=== PATIENT | male | born 1985 | race Caucasian/White ===

== ENCOUNTER 2017-02-25 19:02 | Emergency (ER) | payer OTHER ==
--- NOTE | ~2017-02-25 | CR72 ---
[facility] A Service of [facility] & [facility] RADIOLOGY TEXT RESULTS PATIENT: ANIKET TROTTER LOCATION: [facility] : 89 UNIT #: [id number] AGE: [address]: Larisa Garcia MD SEX: M ORDER DR: [id number] [facility] [address] [place], [place] [address] [id number] MR#: [id number] Acc #: [id number] NAME: ANIKET TROTTER : 1985 SEX: M STUDY DATE/TIME: 02/25/2017 22:02 UNIT: [facility] ROOM: STUDY DESCRIPTION: CR Chest Single View Portable Attending Physician: Larisa Garcia M.D. Ordering Physician: Larisa Garcia M.D. Primary Care Physician: No Primary Care Physician MEDICAL IMAGING REPORT This report is preliminary unless electronic signature is present EXAM Portable chest 02/25/2017 HISTORY Chest pain and shortness of breath for 2 days chest congestion. FINDINGS A single AP portable view of the chest shows both lungs to be clear. The heart is normal in size. The mediastinal contour is normal. No significant bone abnormalities are seen. IMPRESSION Normal portable chest. Dictated by... Mauri Mensah M.D. THIS IS AN ELECTRONICALLY VERIFIED REPORT Mauri Mensah M.D. at 02/28/2017 8:27 AM CHYNA/stephanie TD: 02/26/2017 02:27 JOB #: [id number] MEDICAL IMAGING REPORT Page 1 of 1 COPY
--- NOTE | ~2017-02-25 | EKG ---
PATIENT: ANIKET TROTTER UNIT #: [id number] Ventricular Rate: 130 BPM Atrial Rate: 130 BPM P-R Interval: 142 ms QRS Duration: 98 ms Q-T Interval: 304 ms QTC Calculation(Bezet): 447 ms P Paradise: 56 degrees Calculated R Paradise: -57 degrees Calculated T Paradise: 69 degrees Diagnosis Line: Sinus tachycardia Diagnosis Line: Possible Left atrial enlargement Diagnosis Line: Pulmonary disease pattern Diagnosis Line: Incomplete right bundle branch block Diagnosis Line: Left anterior fascicular block Diagnosis Line: Left ventricular hypertrophy Diagnosis Line: Nonspecific ST abnormality Diagnosis Line: Abnormal ECG Diagnosis Line: When compared with ECG of 16-JUL-2015 19:49, Diagnosis Line: No significant change was found Diagnosis Line: Confirmed by HENRI PINEDA MD ([id number]) on Diagnosis Line: 02/27/2017 10:43:52 AM INTERPRETING MD: KATHY
[~2017-02-25 19:02] MED LIST: AMOXICILLIN500 M1 PO; BACTRIM DS TABL1 TA1 PO; BENZONATATE PO; ELIMITE60 GM TOP; FLEXERIL10 M1 PO; MEDROL DOSEPAK4 MG DOB; NAPROXEN PO; NO MEDICATIONS; TESSALON200 MG PO; VIBRAMYCIN100 M1 PO; VOLTAREN75 MG PO
[2017-02-25 22:51] LABS: BASOPHIL% 0.2 % (0-2.5); HEMATOCRIT 47.9 % (38.0-50.0); LYMPHOCYTE# 0.5 X10e3 (1.0-3.5); LYMPHOCYTE% 2.8 % (17.0-45.0); MEAN CORPUSCULAR HEMOGLOBIN 30.4 PG (28-34); MEAN CORPUSCULAR HGB CONC 33.4 g/dL (30-36); MEAN PLATELET VOLUME 7.7 FL (6.5-11.5); MONOCYTE# 0.7 X10e3 (0-1.0); MONOCYTE% 3.9 % (3.0-12.0); NEUTROPHIL# 17.8 X10e3 (1.5-7.1); NEUTROPHIL% 93.1 % (40-75); PLATELET COUNT 197 X10e3 (140-420); RED BLOOD COUNT 5.27 X10e (3.90-5.60); WHITE BLOOD COUNT 19.1 X10e3 (4.0-10.5)
[2017-02-25 22:52] LABS: DIFF IND YES
[2017-02-25 23:00] LABS: INR 1.1; PARTIAL THROMBOPLASTIN TIME 28.5 SECONDS (23.5-31.3); PROTHROMBIN TIME (PATIENT) 11.4 SECONDS (10.0-11.7)
[2017-02-25 23:09] LABS: ALBUMIN SERUM 4.6 g/dL (3.5-5.0); BILIRUBIN, DIRECT 0.2 mg/dL (0.0-0.2); BILIRUBIN,INDIRECT 1.9 mg/dL (0.0-0.9); BILIRUBIN,TOTAL 2.1 mg/dL (0.2-2.0); BUN/CREATININE RATIO 6.66; CALCIUM SERUM 9.3 mg/dL (8.4-10.2); CREATININE SERUM 1.2 mg/dL (0.6-1.4); GLOM FILT RATE Estimated 81.3 mL/min (>60); POTASSIUM 3.3 mmol/L (3.5-5.1); PROTEIN TOTAL SERUM 7.9 g/dL (6.0-8.3)
[2017-02-25 23:28] LABS: PLATELET ESTIMATE DECREASED (NORMAL); RBC NORMAL YES
[2017-02-26 00:51] LABS: POC - CKMB <1.0 ng/mL (0.0-7.9); POC - TROPONIN <0.05 ng/mL (<=0.05)
== END 2017-02-26 03:59 ==
LOC: CED 19:02
PROVIDERS: Student in an Organized Health Care Education/Training Program
DX: A41.9 Sepsis, unspecified organism (principal); L03.113 Cellulitis of right upper limb; F10.239 Alcohol dependence with withdrawal, unspecified; F17.200 Nicotine dependence, unspecified, uncomplicated
CPT/HCPCS: 36415; 71010; 80048; 80076; 82553; 83605; 84484; 85025; 85610; 85730; 87040; 93005; 96361; 96374; 99285; J2060; J3370

== ENCOUNTER 2017-03-21 16:29 | Emergency (ER) | payer OTHER ==
[2017-03-21] MEDS ORDERED: ANTIBIOTIC (16:30)
== END 2017-03-21 18:35 | disposition home or self-care (01) ==
LOC: SED 16:29
DX: Z48.01 Encounter for change or removal of surgical wound dressing (principal); F17.210 Nicotine dependence, cigarettes, uncomplicated
CPT/HCPCS: 99282